=== PATIENT | female | born 1960 | race Caucasian/White ===

== ENCOUNTER 2017-01-15 11:15 | Day surgery (SDC) | payer BC ==
[2017-01-14 15:53] VITALS: BMI 29.2
[2017-01-15] MEDS ORDERED: Midazolam HCl 2 mg/2 ml Vial ONE (11:54)
[2017-01-15] MEDS ORDERED: Fentanyl 100 MCG/2 ML VIAL ONE (11:54)
[2017-01-15] MEDS ORDERED: Propofol 500 MG/50 ML VIAL ONE (11:54)
--- NOTE | 2017-01-15 16:12 | MRI ---
EXAM: CERVICAL SPINE MRI WITHOUT CONTRAST 01/15/17 HISTORY: Cervical spine pain. Headache. Evaluate for arachnoid cyst. COMPARISON: None. TECHNIQUE: Cervical spine MRI is performed without contrast. Multisequential, multiplanar imaging is performed. FINDINGS: There is appropriate T1 marrow signal intensity of the cervical vertebra. Cervical spine vertebral b adryan height is maintained. There is no fracture. No significant STIR hyperintensity to suggest edema or ligamentous injury. There is increased T2 signal hyperintensity in the posterior fossa which may represent arachnoid cyst. Evaluation is limited. The cerebellar vermis as well as the right cerebell ar hemisphere appear to be diminutive. Brain MRI is recommended for better interrogation. The cervic omedullary junction, cerebral cord and upper thoracic cord have a normal size and signal intensity. C2-C3: No significant disc osteophyte complex. No significant central canal stenosis. Neural foramin a are patent. C3-C4: Broad based disc osteophyte complex abuts the thecal sac. There is no significant central vicki nosis. Degenerative change in bilateral uncovertebral joints result in minimal right and severe left foraminal narrowing. Note, there is severe left sided facet hypertrophy. C4-C5: Broad based osteophyte complex abuts the thecal sac. Ventral subarachnoid space is nearly ef faced. There is mild to moderate central canal stenosis. Degenerative changes in the right uncoverte bral joint results in moderate to severe right foraminal narrowing. Left neural foramen is patent. C5-C6: No significant disc osteophyte complex. No significant central canal stenosis. Neural foramin a are parent. C6-C7: Broad based disc osteophyte complex without significant central canal stenosis. Degenerative changes in the bilateral uncovertebral joints results in mild to moderate right and moderate left fo raminal narrowing. C7-T1: No significant disc osteophyte complex. No significant central canal stenosis. neural forami na are patent. IMPRESSION: 1. Degenerative changes in the cervical spine as above. 2. T2 hyperintensity in the posterior fossa incompletely evaluated. Brain MRI is recommended. POS: [facility]
--- NOTE | 2017-01-15 16:23 | MRI ---
MRI BRAIN WITH AND WITHOUT CONTRAST: History: Headaches. Extremity pain. Evaluate for arachnoid cyst. Comparison: None. Technique: Brain MRI is performed without intravenous and with intravenous Gadolinium administration . Multisequential, multiplanar imaging is performed. FINDINGS: No parenchymal hemorrhage. No extraaxial hematoma. No midline shift. Basilar cisterns are patent. Br ain volume, age appropriate. Cortical smith white matter differentiation is preserved. Ventricles are patent and symmetric. Calvarium has a normal marrow signal intensity. Midline brain parenchymal structures are unremarkabl e. At the midline of the posterior fossa and along the right aspect there is a T2 hyperintense, FLAIR h ypointense lesion without associated enhancement. Signal characteristics are compatible with CSF. Th ere is an absence of vessels traversing this region. There is some mass effect upon the adjacent bra in parenchymal structures. There is evidence of an arachnoid cyst measuring 4.6 cm mediolateral x 3. 2 cm anterior posterior x 2.1 cm craniocaudal. IMPRESSION: CSF signal intensity lesion/collection in the posterior fossa with some mass effect. Paucity of vess els in this region and signal characteristics compatible with CSF raise the possibility of an arachn oid cyst, rather than a prominent CSF collection. POS: [facility]
== END 2017-01-15 14:25 | disposition home or self-care (01) ==
LOC: CANPRESDC → SDC/OP 11:15
PROVIDERS: ATTEND Neurological Surgery
DX: G93.0 Cerebral cysts (principal); M54.2 Cervicalgia; R51 Headache; Z88.8 Allergy status to other drugs, medicaments and biological substances; Z82.3 Family history of stroke
CPT/HCPCS: 70553; 72141; J2250; J2704; J3010